=== PATIENT | male | born 1995 | race Caucasian/White ===

== ENCOUNTER 2018-02-16 20:29 | Emergency (ER) | payer OTHER, BC ==
[~2018-02-16] VITALS: Ht 185.4 cm; Wt 83.0 kg
[2018-02-16] MEDS ORDERED: KEFLEX500 M1 PO (20:44)
[2018-02-16] MEDS ORDERED: NOHOMEMEDICATIONS (20:46)
[2018-02-16 21:30] VITALS: BP 130/92
[2018-02-17] MEDS ORDERED: KEFLEX500 M1 PO (14:22)
== END 2018-02-16 21:31 | disposition home or self-care (01) ==
LOC: M.ERS 20:29
DX: S61.200A Unspecified open wound of right index finger without damage to nail, initial encounter (principal); Z88.0 Allergy status to penicillin; X58.XXXA Exposure to other specified factors, initial encounter; Y93.89 Activity, other specified; Y92.89 Other specified places as the place of occurrence of the external cause; Y99.8 Other external cause status